=== PATIENT | female | born 1955 | race Caucasian/White ===

== ENCOUNTER 2018-06-10 00:08 | Outpatient (CLI) | payer MEDICARE, SELFPAY ==
--- NOTE | 2018-06-10 11:15 | DI.MAMMO_ITS ---
SYMPTOMS/DIAGNOSIS: SCREENING, [facility], [facility], Z00.00 MAMMOGRAM: Mammograms were interpreted according to the usual protocol including computer analysis with CAD system, tomosynthesis and C view imaging. The breasts are heterogeneously dense. No dominant mass or clumped microcalcification identified in either breast. Current examination is compared with previous examinations including September 2016 and there has been no gross interval change in appearance in comparison with the previous studies. CONCLUSION: No specific evidence of malignancy at this time. Routine screening examinations are suggested at yearly intervals due to the family history of breast carcinoma. Category 1, breast density category C. SA ASSESSMENT OF FINDINGS: Negative. Category 1. Patient will receive a letter notifying them of these results. Bi-RADS category C. The breasts are heterogeneously dense, which may obscure small masses.
== END 2018-06-10 00:28 ==
PROVIDERS: PCP Family Medicine; Visit Provider Family Medicine
DX: Z12.31 Encounter for screening mammogram for malignant neoplasm of breast (principal); Z80.3 Family history of malignant neoplasm of breast
CPT/HCPCS: 77063; 77067

== ENCOUNTER 2018-12-21 10:40 | Outpatient (REF) | payer MEDICARE, SELFPAY ==
[2018-12-21 13:58] LABS: ALT 18 U/L (12-78); AST 12 U/L (15-37); Alkaline Phosphatase 101 U/L (46-116); Anion Gap 7.6 mmol/L (3-11); BUN 19 mg/dL (7-18); Bilirubin Negative (Negative); Bilirubin, Direct 0.09 mg/dL (0.00-0.20); Bilirubin, Total 0.4 mg/dL (0.2-1.0); Blood Negative (Negative); CO2 28.4 mmol/L (21.0-32.0); CREATININE 0.95 mg/dL (0.55-1.02); Calcium 9.2 mg/dL (8.5-10.1); Chloride 104 mmol/L (98-107); Clarity Clear (Clear); Estimated GFR 59.04 (mL/min/1.73m2); Glucose 93 mg/dL (70-100); Glucose Negative (Negative); Ketones Negative (Negative); Leukocyte Esterase Trace (Negative); Nitrite Negative (Negative); Potassium 4.5 mmol/L (3.5-5.1); Sodium 140 mmol/L (136-145); Specific Gravity <= 1.005 (1.005-1.025); Total Protein 7.1 g/dL (6.4-8.2); Urobilinogen 0.2 EU/dL (Up TO 0.2); pH 5.5 (5-8)
[2018-12-21 13:59] LABS: HCT 41.8 % (36.0-46.0); HGB 13.3 g/dL (12.0-15.5); Mean Corp. HGB Concentration 31.8 g/dL (32.0-36.0); Mean Corpuscular Hemoglobin 29.2 pg (27.0-33.0); Mean Corpuscular Volume 91.7 fL (80-95); Mean Platelet Volume 10.8 fL (8.0-11.0); Platelet Count 265 x1000/uL (130-400); RBC 4.56 m/cumm (4.00-5.20); RBC Distribution Width 12.7 % (11.7-14.6); White Blood Cell Count 5.79 k/cumm (4.4-10.8)
[2018-12-21 14:13] LABS: Bacteria Rare HPF (Negative); Casts Negative LPF (Negative); Crystals Negative HPF (Negative); Epithelial Cells Rare HPF (Negative); Mucus Negative (Negative); Other Cells Rare Transitional (Negative); RBC Negative (0-2); WBC 0-2 HPF (0-5)
[2018-12-21 14:14] LABS: C & S Indicated? No
[2018-12-21 14:21] LABS: COMMENT (LAB VIEW ONLY) 26.67 mg/dL; Microalb ug/mg Crea 52.1 ug/mg Cr
== END 2018-12-21 11:00 ==
LOC: NCHCN 10:40
PROVIDERS: PCP Family Medicine; Visit Provider Family Medicine
DX: R79.89 Other specified abnormal findings of blood chemistry (principal); I10 Essential (primary) hypertension; N39.0 Urinary tract infection, site not specified
CPT/HCPCS: 80053; 80076; 85027; 81003; 81015; 82043; 82570

== ENCOUNTER 2018-12-25 01:08 | Outpatient (CLI) | payer MEDICARE, OTHER, SELFPAY ==
--- NOTE | 2018-12-25 13:45 | DI.CT_ITS ---
SYMPTOMS/DIAGNOSIS: SOLITARY PULMONARY NODULE, R91.1 CT SCAN OF THE CHEST: Noncontrast CT scan of the chest was performed. Comparison examination is 11/10/16. Lack of contrast does limit the examination. There is again seen a hypodense nodule in the left lobe of the thyroid gland, which appears unchanged in size. There is atherosclerosis of the thoracic aorta, but no significant aneurysmal dilatation is seen. The heart size is within normal limits. No significant pericardial effusion is present. Coronary artery calcifications are present. No significant thoracic adenopathy is appreciated. No pleural effusion or pneumothorax is identified. There is a noncalcified pulmonary nodule in the left lower lobe (series 6 image 399). The nodule measures 0.6 cm and is unchanged compared to the prior examination. There are scattered areas of pleural and parenchymal scarring. No new pulmonary nodules are appreciated. No focal consolidating infiltrates are seen. The tracheobronchial tree is unremarkable. Upper abdominal images again show findings of prior granulomatous disease in the spleen. There is a 1.3 cm stone in the gallbladder. Right renal cysts are present. No acute fractures are seen. Degenerative changes are seen in the spine. IMPRESSION: Stable 0.6 cm left lower lobe pulmonary nodule. The nodule has been stable since 11/10/2016.
== END 2018-12-25 01:28 ==
PROVIDERS: PCP Family Medicine; Visit Provider Family Medicine
DX: R91.1 Solitary pulmonary nodule (principal); K80.20 Calculus of gallbladder without cholecystitis without obstruction
CPT/HCPCS: 71250

== ENCOUNTER 2021-03-12 15:52 | Outpatient (REF) | payer MEDICARE, OTHER, SELFPAY ==
[2021-03-12 20:27] LABS: ESR 2 mm/hr (0-30)
[2021-03-12 20:28] LABS: HCT 42.1 % (36.0-46.0); HGB 13.2 g/dL (11.2-15.7); MCH 29.1 pg (27.0-33.0); MCHC 31.4 % (32.0-36.0); MCV 92.7 fL (80-95); MPV 10.8 fL (8.0-11.0); Platelet Count 270 10^3/uL (130-400); RBC 4.54 10^6/uL (3.93-5.22); RDW 12.5 % (11.7-14.6); RDW-SD 42.9 fL; WBC 6.45 10^3/uL (4.4-10.8)
[2021-03-12 20:33] LABS: ALT 66 U/L (14-59); AST 34 U/L (15-37); Albumin 3.8 g/dL (3.4-5.0); Alkaline Phosphatase 118 U/L (46-116); Anion Gap 6.4 mmol/L (3-11); BUN 23 mg/dL (7-18); Bilirubin, Total 0.5 mg/dL (0.2-1.0); CO2 30.6 mmol/L (21.0-32.0); CREATININE 0.9 mg/dL (0.55-1.02); Calcium 9.1 mg/dL (8.5-10.1); Calculated LDL 101 mg/dL (<100); Chloride 105 mmol/L (98-107); Cholesterol 208 mg/dL (<200); Glucose 69 mg/dL (74-106); HDL Cholesterol 73 mg/dL (40-60); Potassium 4.4 mmol/L (3.5-5.1); Sodium 142 mmol/L (136-145); Total Protein 6.8 g/dL (6.4-8.2); Triglyceride 174 mg/dL (<150)
[2021-03-12 21:08] LABS: Bilirubin Negative (Negative); Blood Trace-intact (Negative); Clarity Clear (Clear); Glucose Negative (Negative); Ketones Negative (Negative); Leukocyte Esterase Negative (Negative); Nitrite Negative (Negative); Urobilinogen 0.2 EU/dL (Up TO 0.2); pH 5.5 (5-8)
[2021-03-12 21:13] LABS: COMMENT (LAB VIEW ONLY) 108.55 mg/dL; Microalb ug/mg Crea 59.2 ug/mg Cr
[2021-03-12 21:19] LABS: Bacteria Rare HPF (Negative); C & S Indicated? C&S Done As Ordered; Casts Negative LPF (Negative); Crystals Negative HPF (Negative); Epithelial Cells Rare HPF (Negative); Mucus Negative (Negative); RBC 0-2 HPF (0-2); WBC Negative HPF (0-5)
[2021-03-12 21:23] LABS: C-Reactive Protein < 0.05 mg/dL (0.0-0.3)
== END 2021-03-12 15:53 | disposition home or self-care (01) ==
LOC: NCHCN 15:52
PROVIDERS: PCP Family Medicine; Visit Provider Family Medicine
DX: I10 Essential (primary) hypertension (principal); E28.319 Asymptomatic premature menopause; N39.0 Urinary tract infection, site not specified; M32.9 Systemic lupus erythematosus, unspecified
CPT/HCPCS: 80053; 80061; 85027; 85652; 87077; 81003; 81015; 82043; 82570; 86140; 87086; 87186

== ENCOUNTER 2021-06-07 02:31 | Outpatient (CLI) | payer MEDICARE, OTHER, SELFPAY ==
--- NOTE | 2021-06-07 | DI.DEXA_ITS ---
Exam(s) XR DEXA BONE DENSITY W/WO OBDULIO EXAM: XR DEXA BONE DENSITY W/WO OBDULIO CLINICAL HISTORY: EARLY MENOPAUSE E28.319 TECHNIQUE: NovaSom C densitometer COMPARISON: 2002 through 2014 FINDINGS: Lateral view of the thoracic and lumbar spine shows no evidence of compression fractures. Bone mineral density measurements of the lumbar spine correspond to a total T-score of -1.8, in the osteopenic range. This represents a 4.7 percent decrease when compared with 2014 and a 5.4 percent d ecrease compared with 2002. Bone mineral density measurements of the left hip correspond to a total T-score of -2.1. The femora l neck T-score is -3.0, in the osteoporotic range. This represents an 8.9 percent decrease compared to 2014 and a 19.0 percent decrease compared with 2002.. The left forearm bone mineral density measurements correspond to a T-score of the distal 3rd of -2.9 , in the osteoporotic range. 5.5 percent decrease compared with 2014 and 10.7 percent decrease when compared with 2011.. IMPRESSION: Osteoporosis of the left forearm and left hip. Osteopenia of the lumbar spine.
--- NOTE | 2021-06-07 13:50 | DI.MAMMO_ITS ---
Exam(s) MAMMO SCREENING EXAM: MAMMO SCREENING CLINICAL HISTORY: SCREENING FOR BREAST [id number] TECHNIQUE: Mammograms were interpreted according to the usual protocol including computer analysis w Pulsar CAD system, tomosynthesis and C-view imaging. COMPARISON: 2011 through 2017 FINDINGS: The breasts are composed of heterogeneously dense fibroglandular densities, Breast Density category C . No suspicious masses or suspicious microcalcifications are seen. No skin thickening or abnormal axillary lymph nodes are seen. There has been no significant change from prior exams. IMPRESSION: BI-RADS Category 1, Negative mammogram. Yearly screening mammography is recommended. Breast Density Category C, heterogeneously Dense. The mammogram demonstrates the patient's breast tissue is dense. Dense breast tissue is very common a nd is not abnormal but dense breast tissue can make it harder to find cancer on a mammogram. Also, de nse breast tissue may increase breast cancer risk. This information about the result of the mammogram report was provided to the patient to raise their awareness. Use this report when you speak with the patient about their risks for breast cancer, which includes their family history. At that time, you may recommend additional screening tests (Ultrasound or MRI) as they might be useful based on their r isk. A negative radiographic report should not delay biopsy if a dominant or clinically suspicious mass is present. Up to ten percent of cancers are not identified on mammography. A negative report may reinforce clinical impression. Adenosis and dense breasts may obscure an underlying neoplasm. False positive reports average 6 to 10%.
== END 2021-06-07 02:51 ==
PROVIDERS: PCP Family Medicine; Visit Provider Family Medicine
DX: Z12.31 Encounter for screening mammogram for malignant neoplasm of breast (principal); M81.0 Age-related osteoporosis without current pathological fracture; M85.88 Other specified disorders of bone density and structure, other site; E28.319 Asymptomatic premature menopause
CPT/HCPCS: 77063; 77067; 77080

== ENCOUNTER 2021-09-21 21:39 | Outpatient (REF) | payer MEDICARE, OTHER, SELFPAY ==
[2021-09-21 17:08] LABS: ALT 27 U/L (14-59); AST 23 U/L (15-37); Albumin 3.9 g/dL (3.4-5.0); Alkaline Phosphatase 101 U/L (46-116); Anion Gap 8.4 mmol/L (3-11); BUN 21 mg/dL (7-18); Bilirubin, Total 0.4 mg/dL (0.2-1.0); CO2 26.6 mmol/L (21.0-32.0); Calcium 9.3 mg/dL (8.5-10.1); Chloride 103 mmol/L (98-107); Estimated GFR 55.14 (mL/min/1.73m2); Glucose 87 mg/dL (74-106); PHOSPHORUS 4.7 mg/dL (2.6-4.7); Potassium 4.4 mmol/L (3.5-5.1); Sodium 138 mmol/L (136-145); Total Protein 6.9 g/dL (6.4-8.2)
[2021-09-24 06:57] LABS: Vitamin D 25 Total 37.2 ng/mL (30-100)
[2021-09-24 09:15] LABS: TSH (W/Ref FT4) 1.92 uIU/mL (0.36-3.74)
[2021-09-24 12:57] LABS: Parathyroid Hormone,Intact 43 pg/mL (19-88)
== END 2021-09-21 21:40 | disposition home or self-care (01) ==
LOC: NCHCN 21:39
PROVIDERS: PCP Family Medicine; Visit Provider Family Medicine
DX: I10 Essential (primary) hypertension (principal); M85.88 Other specified disorders of bone density and structure, other site; R79.89 Other specified abnormal findings of blood chemistry; M32.14 Glomerular disease in systemic lupus erythematosus
CPT/HCPCS: 80053; 82306; 83970; 84100; 84443

== ENCOUNTER 2022-05-03 13:24 | Outpatient (RCR) | payer MEDICARE, OTHER, SELFPAY ==
--- NOTE | 2022-05-03 13:15 | HOLTER_ITS ---
APPROVED REPORT Conclusion This a 48-hour Holter monitor ordered for palpitations Rhythm throughout was sinus with an average heart rate of 82, minimum was 66, maximum 156 There are very rare isolated atrial and ventricular ectopic beats There was no atrial fibrillation, no SVT, no high-grade AV block, no pauses greater than 3 seconds Patient symptoms were reported which did not correspond to any dysrhythmia
== END 2022-05-15 23:59 | disposition home or self-care (01) ==
LOC: CARDOPNVT 13:24
PROVIDERS: PCP Family Medicine; Visit Provider Family Medicine
DX: R00.0 Tachycardia, unspecified (principal); R00.2 Palpitations
CPT/HCPCS: 93227; 93225; 93226

== ENCOUNTER → 2022-06-07 12:00 | Outpatient (BNVA) | payer MEDICARE, OTHER, SELFPAY | PROVIDERS: PCP Family Medicine; Referring Provider Family Medicine; Visit Provider Surgery | DX: Z12.11 Encounter for screening for malignant neoplasm of colon (principal) ==

== ENCOUNTER 2022-07-11 01:25 | Outpatient (CLI) | payer MEDICARE, OTHER, SELFPAY ==
--- NOTE | 2022-07-11 | DI.US_ITS ---
APPROVED REPORT EXAM: Comprehensive 2D, Doppler, and color-flow Echocardiogram Patient Location: Out-Patient Rn Lvn: Felicitas Catherine RDCS (AE) Indications: Palpitations, Heart murmur Other Information Study Quality: Adequate Conclusion Normal left ventricular wall thickness and chamber size. Estimated ejection fraction is 60 to 65%. Wall motion is normal Normal right ventricular size and systolic function Both atria are normal in size Aortic valve is trileaflet with trace regurgitation Normal mitral valve with mild regurgitation Normal tricuspid valve, mild regurgitation. Estimated right ventricular systolic pressure is 30 mmHg Wall motion Left Ventricle The left ventricle is normal size. The left ventricular systolic function is normal. The left ventric ular ejection fraction is within the normal range. There is normal left ventricular wall thickness. T here is normal LV segmental wall motion. There is no ventricular septal defect visualized. LVEF is 60 -65%. Right Ventricle The right ventricle is normal size. The right ventricular systolic function is normal. The RVSP is 30 .0mmHg. Atria The left atrium size is normal. The right atrium size is normal. The interatrial septum is intact wit h no evidence for an atrial septal defect. Aortic Valve The aortic valve is normal in structure. There is no aortic valvular stenosis. Trace aortic regurgita tion. Mitral Valve The mitral valve is normal in structure. No evidence of mitral valve stenosis. Mild mitral regurgitat ion. Tricuspid Valve The tricuspid valve is normal in structure. There is no tricuspid valve stenosis. Mild tricuspid reg urgitation. Pulmonic Valve The pulmonary valve is normal in structure. There is no pulmonic valvular stenosis. There is no pulmo arianna valvular regurgitation. Great Vessels The aortic root is normal in size. The ascending aorta is normal in size. Aortic arch is normal in ca liber. IVC is normal in size and collapses >50% with inspiration. Pericardium There is no pericardial effusion. 2D Dimensions IVSD d PLAX 0.96 cm F: 0.6-1.0 LV Vol A2C d MOD 87.0 mL LVPW d PLAX 0.96 cm F: 0.6 - 1.0 LV Vol A4C d MOD 71.5 mL LVID d PLAX 4.06 cm F: 3.8 - 5.2 LA vol/ BSA A2C s A-L 35.9 mL/m2 LVDs 2.80 cm F: 2.2 - 3.5 LA vol/ BSA A4C s A-L 25.0 mL/m2 Ao Root d 2.49 cm F: 2.7 - 3.3 LA Vol/ BSA Biplane s A-L 30.2 mL/m2 RA Area A4C 9.93 cm2 LA Area A4C s MOD 16.67 cm2 RA Vol/ BSA A4C s A-L 11.2 mL/m2 LA Area A2C s MOD 19.82 cm2 Ao Asc Diam d 3.14 cm F: 2.3 - 3.1 LV EF A4C MOD 58.9 % LV EF Teichholz 57.8 % LV EF A2C MOD 58.5 % LVEF (Bone's) 57.76 % F: 54 - 74 LV EF Biplane MOD 57.8 % LV Volume 62.39 mL F: 46 - 106 SV 46.19 mL LV Volume Index 34.85 mL/m2 F: 29 - 61 SV Index 25.88 mL/m2 LV Vol Biplane MOD 80.0 mL FS 30.05 % M-Mode TAPSE 1.64 cm (M/F) >1.7 LV Diastology MV E' medial 0.127 (>0.07 m/s) E/A Ratio 0.7 LV E/e MED 5.45 (<14) MV E Vmax 0.70 (0.4-1.3 m/s) MV E' lateral 0.067 (>0.1 m/s) MV A Vmax 1.00 (0.4-1.3 m/s) LV E/e LAT 10.35 (<14) MV E/A Ratio 0.67 MV E/E' medial 5.48 MV E/E' lateral 10.35 Aortic Valve LVOT Area 2.89 cm2 AoV Area Vmax 2.66 cm2 LVOT Vmax 1.64 m/s AoV Area/ BSA (Vmax) 1.49 cm2/m2 LVOT Mean Amol. 1.05 m/s MAURICE Mean Amol. 2.47 cm2 LVOT Peak Grad 10.8 mmHg MAURICE Mean Amol. Index 1.38 cm2/m2 LVOT Mean Grad 5.2 mmHg AR DT 1890 msec LVOT VTI 0.326 m AR PHT 548 msec LVOT Diam s 1.90 cm AoV Vmax 1.78 m/s Velocity Ratio 0.92 AoV Mean Amol. 1.23 m/s AoV Peak Grad 12.7 mmHg LVOT SV 94.27 mL AoV Mean Grad 6.9 mmHg AoV VTI 0.329 m AoV Area VTI 2.86 cm2 AoV Area/ BSA (VTI) 1.60 cm/m2 Mitral Valve MV DT 175 (160-240 msec) MV PHT 51 msec MV Area PHT 4.32 cm2 MV VTI 0.269 m MV Area VTI 3.51 (4.0-6.0 cm2) Pulmonary Valve PV Vmax 1.11 (0.5-1.5 m/s) RVOT Peak Gr. 3.28 mmHg PV Peak Grad 4.9 mmHg RVOT Mean Gr. 1.55 mmHg PV Mean Grad 2.5 mmHg RVOT VTI 0.180 m PV VTI 0.209 m RVOT Vmax 0.91 m/s Tricuspid Valve TR Peak Grad 26.9 mmHg TR Vmax 2.60 m/s RA Pressure 3.00 mmHg RVSP (TR) 30.0 mmHg
== END 2022-07-11 01:45 ==
LOC: DI 01:26
PROVIDERS: PCP Family Medicine; Visit Provider Family Medicine
DX: R00.2 Palpitations (principal); R01.1 Cardiac murmur, unspecified
CPT/HCPCS: 93306

== ENCOUNTER → 2022-07-15 09:37 | Outpatient (BNVA) | payer MEDICARE, OTHER, SELFPAY | PROVIDERS: PCP Family Medicine; Referring Provider Family Medicine; Visit Provider Surgery | DX: Z12.11 Encounter for screening for malignant neoplasm of colon (principal); Z80.0 Family history of malignant neoplasm of digestive organs; K57.30 Diverticulosis of large intestine without perforation or abscess without bleeding; K21.9 Gastro-esophageal reflux disease without esophagitis; I10 Essential (primary) hypertension | CPT/HCPCS: 99243 ==

== ENCOUNTER 2022-07-16 13:45 | Outpatient (CLI) | payer MEDICARE, OTHER, SELFPAY ==
[2022-07-16 13:49] LABS: Abs Immature Grans 0.02 10^3/uL (0.0-0.06); Absolute Basophil Count 0.03 10^3/uL (0.0-0.2); Absolute Eosinophil Count 0.11 10^3/uL (0.0-0.7); Absolute Lymphocyte Count 1.78 10^3/uL (1.2-3.4); Absolute Monocyte Count 0.62 10^3/uL (0.1-0.8); Absolute Neutrophil Count 3.24 10^3/uL (1.2-6.7); Basophils % 0.5; Eosinophils % 1.9; HCT 39.2 % (36.0-46.0); HGB 12.6 g/dL (11.2-15.7); Immature Grans % 0.3; Lymphocytes % 30.7; MCH 28.9 pg (27.0-33.0); MCHC 32.1 % (32.0-36.0); MCV 90 fL (80-95); MPV 9.7 fL (8.0-11.0); Monocytes % 10.7; Neutrophils % 55.9; Platelet Count 266 10^3/uL (130-400); RBC 4.36 10^6/uL (3.93-5.22); RDW 12.8 % (11.7-14.6); RDW-SD 42.5 fL
[2022-07-16 14:29] LABS: ALT 18 U/L (14-59); AST 21 U/L (15-37); Albumin 3.7 g/dL (3.4-5.0); Alkaline Phosphatase 116 U/L (46-116); BUN 24 mg/dL (7-18); Bilirubin, Total 0.2 mg/dL (0.2-1.0); CREATININE 0.9 mg/dL (0.55-1.02); Calcium 8.8 mg/dL (8.5-10.1); Chloride 106 mmol/L (98-107); GGT 8 U/L (5-55); Glucose 117 mg/dL (74-106); Potassium 3.9 mmol/L (3.5-5.1); Sodium 141 mmol/L (136-145)
== END 2022-07-16 13:46 | disposition home or self-care (01) ==
LOC: LBO 13:45
PROVIDERS: PCP Family Medicine; Visit Provider Surgery
DX: I10 Essential (primary) hypertension (principal); K21.9 Gastro-esophageal reflux disease without esophagitis; K57.30 Diverticulosis of large intestine without perforation or abscess without bleeding; E78.00 Pure hypercholesterolemia, unspecified; R94.5 Abnormal results of liver function studies
CPT/HCPCS: 36415; 80053; 82977; 85025; 85610

== ENCOUNTER 2022-07-18 07:01 | Day surgery (SDC) | payer MEDICARE, OTHER, SELFPAY ==
--- NOTE | 2022-07-17 21:17 | W.PM.DSUDISC ---
Date of service: 07/18/22 Time of Service: 09:03 Discharge Plan Disposition Patient Disposition: Home Condition: Good Discharge Details Reason For Visit: Screening colonoscopy Attending Provider: Galdino Hendricks Primary Care Provider: Fernanda Arreola Home Meds and New Rx's Prescriptions: Continued estradiol [Estrace] 0.01 % (0.1 mg/gram) cream 1 g vaginal QWEEK latanoprost 0.005 % drops 1 drp ophthalmic (eye) DAILY nitrofurantoin macrocrystal 50 mg capsule 50 mg PO QHS Rx Instructions: must administer with a meal/food diphenhydramine-acetaminophen [Tylenol PM Extra Strength] 25-500 mg tablet 1 tab PO QHS PRN Excedrin Extra Strength 250-250-65 mg tablet 1 tab PO ONCE lisinopril 40 MG tablet 40 mg PO HS hydroxychloroquine 200 MG tablet 0.5 tab PO BID Discontinued polyethylene glycol 3350 17 gram/dose powder 238 g PO ONCE Qty: 238 0RF Rx Instructions: take per colonoscopy instructions bisacodyl [Dulcolax (bisacodyl)] 5 mg tablet,delayed release (DR/EC) 5 mg PO ONCE Qty: 4 0RF Rx Instructions: take per colonoscopy instructions Discharge Instructions Instructions: Rectocele (GEN), Diverticulosis (DC), Diverticulosis Diet (GEN), Colorectal Polyps (GEN) Additional Instructions: Rosalba, we were able to complete your colonoscopy today without any difficulty. The quality of your prep was excellent. I think the feeling that you have around your rectum is probably a rectocele. I provided some information here about rectoceles. They are not dangerous, and treatment is based on the severity of your symptoms. You also have diverticulosis. You should try to maintain a balanced diet rich in fibers, and stay well-hydrated. Avoiding constipation is the ugalde. I removed 3 pieces of tissue that seemed consistent with polyps. We will take about a week and a half or so to get the results of the pathology report. I will contact you at that time. 1. If tolerated, consume a soft, low fiber diet for 1-2 days. 2[address] Do not drive, drink alcohol, operate machinery, make critical decisions, or do activities that require coordination or balance for 24 hours. 3. Because air was put into your colon during the procedure, expelling air from your rectum (passing gas or farting) is normal. 4. You may not have a bowel movement for 1-3 days because of the colonoscopy prep. This is normal. 5. Go directly to the emergency room if you notice any of the following: Develop chills (warm to touch), or if you have a thermometer and your temperature is above 101 Difficulty breathing or difficultly swallowing Persistent vomiting Severe abdominal pain, other than gas cramps Severe chest pain Black, tarry stools Any bleeding ? exceeding one tablespoon 6. Call your physician if the site where your intravenous was started becomes red, swollen, painful, and warm to touch. 7. Your physician has reviewed your pre-procedure medications. Please continue to take those medications as previously ordered. You will be given specific information/education regarding any changes to your medications before leaving. Activity:: Activity as Tolerated Diet:: As Tolerated Discharge Orders Discharge Orders: Discharge Order (Routine); Ordered 07/17/22 Ordered By: Galdino Hendricks DS: Diagnosis Discharge Diagnosis (1) Screening for colon cancer: Status: Acute Asessment and Plan: Follow-up on polypectomy pathology
--- NOTE | 2022-07-17 21:18 | W.COLOREPORT ---
Date of service: 07/18/22 Time of Service: 09:05 Colonoscopy Report Date of procedure: 07/18/22 Pre-op diagnosis general: Screening colonoscopy Post-op diagnosis procedure note: other (Rectocele, diverticulosis, colorectal polyps) Procedure: Colonoscopy Surgeon: Galdino Hendricks Anesthesia Type: General:No Airway Estimated blood loss (mL): 10 Pathology: other (Colon polyp at 35 cm, rectal polyps x2) Complications: None Disposition: same day Indications: Augustina is a 67-year-old woman with a first-degree relative with colon cancer. She is undergoing screening colonoscopy Prep: Miralax/Dulcolax Procedure Start Time: 08:20 Procedure End Time: 08:47 Retraction Time: 17 Findings: Colon polyp at 35 cm, rectal polyps x2, diverticulosis, rectocele Procedure Description: After the induction of monitored anesthetic care, and with the patient in left lateral decubitus position, I began by performing an external anorectal exam.? Perineum and skin were normal, as was the anal verge.? There was no not evidence of external hemorrhoids.? Next, I performed a digital rectal exam.? I did appreciate any abnormal findings.? Next, I advanced a colonoscope into the rectal vault.? I performed retroflexion.? There appeared to be a rectocele. I did not see signs of significant internal hemorrhoids.? Using insufflation, I then advanced the colonoscope beyond the rectal folds and into the sigmoid colon before advancing towards the cecum.? There was moderate sigmoid diverticulosis the quality of the prep was adequate.? The scope was noted to be in the cecum by identification of the ileocecal valve and appendiceal orifice.? I then began withdrawing the colonoscope using repeated irrigation as necessary for full evaluation of the colonic mucosa. Around 35 cm from the anal verge I identified a 0.25 cm polyp. ?It appeared sessile in character. ?I was able to remove this with a cold forcep polypectomy. ?I examined the site, and there was minimal bleeding. ?Once this was completed, I continued to withdraw the scope and examine the remainder of the colonic mucosa. Once the scope was withdrawn to the level of the rectum, great care was taken to examine portions of the rectal folds.? I Found 2 Rectal Polyps. Both Were Less Than Half a Centimeter. Both Were Removed with Cold Forcep Polypectomy. Finally, the scope was withdrawn and the patient was brought to the same-day surgery recovery unit as the anesthetic wore off. ?The findings and instructions were shared with the patient prior to discharge.
[2022-07-18 07:05] VITALS: BP 153/82; PULSE 93; RESP 18; TEMP 36.4; O2SAT 99
[2022-07-18] MEDS: Lactated Ringers 1,000 ML 80 ML IV (07:52)
--- NOTE | 2022-07-18 08:01 | ANES.PREOP_ITS ---
General Info Date of Service Date Performed: 07/18/22 Height: 5 ft 6 in Weight: 69.2 kg Body Mass Index (BMI): 24.6 Surgical Procedure: Operation Date: 07/18/22 08:20 Proposed Procedure Side Surgeon silvestre Hendricks MD Meds Allergies and Home Medications Allergies Allergy/AdvReac Type Severity Reaction Status Date / Time Sulfa (Sulfonamide AdvReac Intermediate Dizziness/L Unverified 07/18/22 07:26 Antibiotics) ightheade Home Medication Medication Instructions Recorded hydroxychloroquine 200 mg tablet 0.5 tab PO BID 11/10/16 lisinopril 40 mg tablet 40 mg PO HS 11/10/16 [id number] 250 1 tab PO ONCE 04/22/22 mg-250 mg-65 mg tablet (Excedrin Extra Strength) diphenhydramine 25 1 tab PO QHS PRN 04/22/22 mg-acetaminophen 500 mg tablet (Tylenol PM Extra Strength) estradiol 0.01% (0.1 mg/gram) 1 g vaginal QWEEK 04/22/22 vaginal cream (Estrace) latanoprost 0.005 % eye drops 1 drp ophthalmic (eye) DAILY 04/22/22 nitrofurantoin macrocrystal 50 mg 50 mg PO QHS 04/22/22 capsule Current Visit Medications: Current Medications Generic Name Dose Route Start Last Admin Trade Name Freq PRN Reason Stop Dose Admin Hyoscyamine Sulfate 0.125 mg 07/17/22 21:19 Hyoscyamine 0.125 Mg Sl/Oral/Chew SL DIRECTED PRN Ringer's Solution 1,000 mls @ 80 mls/hr 07/18/22 06:00 07/18/22 07:52 IV 08/16/22 23:59 80 mls/hr INFUSION LUIS ALFREDO Administration IV Miscellaneous Supplies 1 each 07/18/22 06:00 Iv Access IV 08/16/22 23:59 DIRECTED LUIS ALFREDO Ondansetron HCl 4 mg 07/17/22 21:19 Ondansetron 4 Mg/2 Ml Vial IVP Q4H PRN PRN Nausea / Vomiting Sodium Chloride 0 ml 07/18/22 06:00 Normal Saline Flush 10 Ml Syr IV 08/16/22 23:59 PRN PRN Sodium Chloride 0 ml 07/18/22 06:00 Normal Saline 10 Ml Vial IJ 08/16/22 23:59 DIRECTED PRN Sterile Water 0 ml 07/18/22 06:00 Water,Injection,Sterile 10 Ml Vial IJ 08/16/22 23:59 DIRECTED PRN PFSH Active Problems Active Problems: Problem Status Onset Code Screening for colon cancer Z12.11 Osteoporosis M81.0 Elevated LFTs R79.89 Solitary pulmonary nodule R91.1 Right hip pain M25.551 SLE (systemic lupus erythematosus) M32.9 Hypertension I10 Family history of colon cancer Z80.0 RYLIE (obstructive sleep apnea) G47.33 Mitral valve regurgitation I34.0 GERD (gastroesophageal reflux disease) K21.9 Diverticula of colon K57.30 Medical History Medical History H pylori ulcer History of recurrent UTIs Lupus nephritis Ureteral reflux Surgical History Surgical History (Updated 07/18/22 @ 07:26 by Carolyn Kong) History of colonoscopy Tobacco Smoking/Tobacco Use Status: Never Alcohol Alcohol Intake: never Substance Use Substance use: Never Substance use type: does not use Vital Signs and Lab Results Vital Signs Most Recent Vital Signs in EMR: Most Recent Vital Signs Temp Pulse Resp BP Pulse Ox 36.4 C L 93 H 18 153/82 H 99 07/18/22 07:05 07/18/22 07:05 07/18/22 07:05 07/18/22 07:05 07/18/22 07:05 Lab Results Blood Type / Crossmatch: No Data to Display Complete Blood Count: White Blood Count 5.80 10^3/uL (4.4-10.8) 07/16/22 13:46 Red Blood Count 4.36 10^6/uL (3.93-5.22) 07/16/22 13:46 Hemoglobin 12.6 g/dL (11.2-15.7) 07/16/22 13:46 Hematocrit 39.2 % (36.0-46.0) 07/16/22 13:46 Platelet Count 266 10^3/uL (130-400) 07/16/22 13:46 Complete Metabolic Panel: Sodium 141 mmol/L (136-145) 07/16/22 13:46 Potassium 3.9 mmol/L (3.5-5.1) 07/16/22 13:46 Chloride 106 mmol/L (98-107) 07/16/22 13:46 Carbon Dioxide 25.0 mmol/L (21.0-32.0) 07/16/22 13:46 BUN 24 mg/dL (7-18) H 07/16/22 13:46 Creatinine 0.9 mg/dL (0.55-1.02) 07/16/22 13:46 Est GFR (CKD-EPI 2020) 69.20 (mL/min/1.73m2) 07/16/22 13:46 Calcium 8.8 mg/dL (8.5-10.1) 07/16/22 13:46 Albumin 3.7 g/dL (3.4-5.0) 07/16/22 13:46 Glucose 117 mg/dL (74-106) H 07/16/22 13:46 Liver Function Panel: Alanine Aminotransferase (ALT/SGPT) 18 U/L (14-59) 07/16/22 13: 46 Aspartate Amino Transf (AST/SGOT) 21 U/L (15-37) 07/16/22 13:46 Gamma Glutamyl Transpeptidase 8 U/L (5-55) 07/16/22 13:46 Coagulation Panel: INR International Normalized Ratio 1.0 (0.9-1.1) 07/16/22 13:4 6 Prothrombin Time 10.0 sec (9.3-11.0) 07/16/22 13:46 Cardiac Panel: No Data to Display Arterial Blood Gas: No Data to Display Venous Blood Gas: No Data to Display Pancreas Panel: No Data to Display Thyroid Panel: No Data to Display Infectious Disease: No Data to Display Blood Cultures: No Data to Display Toxicology Panel: No Data to Display Imaging and Studies Imaging and Studies Study information below may be from another EMR and interpreted by another provider. Please see original notes in EMR for more complete details. Echocardiogram Summary: Conclusion Normal left ventricular wall thickness and chamber size. Estimated ejection fraction is 60 to 65%. Wall motion is normal Normal right ventricular size and systolic function Both atria are normal in size Aortic valve is trileaflet with trace regurgitation Normal mitral valve with mild regurgitation Normal tricuspid valve, mild regurgitation. Estimated right ventricular systolic pressure is 30 mmHg Wall motion 07/08 Anesthesia Assessment and Plan Anesthesia History Personal History: No History of Anesthesia Complications Family History: No Family History of Anesthesia Complications Exercise Tolerance Exercise Tolerance: Metabolic Equivalents>4 Pertinent Negatives Pertinent Negatives: No Symptoms of GERD (Meal related. Spicy) Cardiac & Pulmonary Exam Cardiac Exam: Normal S1/S2 Heart Sounds Pulmonary Exam: Clear Bilateral Breath Sounds Implantable Cardiac Device Does patient have a Pacemaker or an ICD?: No Airway Exam Known Difficult Airway: No Mallampati Class: 2 Mouth Opening: Normal (> 3cm) Thyromental Distance: Greater than 3 cm Neck Range of Motion: Full ROM Neck Circumference: Normal Teeth Condition: Normal Dentition ASA Classification ASA Score: ASA 2 Emergency Case?: No NPO Status NPO Status: NPO Clears >2 hours, Solids >8 hours Anesthesia Plan Resuscitation Status: Full Code Anesthesia Technique: General Anesthesia Airway Planned: Natural Airway Monitors Used: Standard Monitors
[2022-07-18 08:07] VITALS: BMI 24.6
--- NOTE | 2022-07-18 08:43 | BOWEL_PTH ---
PATIENT: Rosalba Chappell LOC: [facility] U#:[id number] AGE/SX: 67/F ROOM: RE07/18/[address]: Galdino Hendricks MD : [id number] BED: DIS: 07/18/2022 SPEC #: [id number] RECD: 07/18/22 12:22 STATUS: KHANG RE #: [id number] JERONIMO: 07/18/22 08:[address]: Galdino Hendricks DEPT: Surgical Specimen RECD BY: Angelita Darby ENTERED: 07/18/22 12:23 SP TYPE: Bowel OTHR DR: Fernanda Arreola Tissues: 1 - BIOPSY BOWEL 2 - BIOPSY BOWEL Procedures: GROSS AND MICRO LEVEL 4 Comments: [id number]
[2022-07-18 08:56] VITALS: BP 116/73; PULSE 82; RESP 16; TEMP 36.3
--- NOTE | 2022-07-18 09:10 | W.ANESPOSTOP ---
Postoperative Evaluation Date, Time and Location Date Performed: 07/18/22 Time Performed: 09:10 Patient Location: Day Surgery Unit Vital Signs Most Recent Imported Vital Signs: Most Recent Vital Signs Temp Pulse Resp BP Pulse Ox 36.3 C L 82 16 116/73 99 07/18/22 08:56 07/18/22 08:56 07/18/22 08:56 07/18/22 08:56 07/18/22 07:05 Pain Score Most Recent Pain Score: Most Recent Pain Score Pain Level 0 07/18/22 08:56 Assessment Mental Status: Awake (Alert & Oriented to Patient Baseline) Airway and Respiratory Function: Patent airway with normal (patient baseline) respiratory exam Cardiovascular Function: Hemodynamically Stable Hydration Status: Adequately Hydrated Nausea & Vomiting: No Nausea or Vomiting Pain: Pt. Denies Any Pain Peripheral Nerve Block: Patient did not receive a nerve block
[2022-07-18 09:24] VITALS: BP 157/88; PULSE 74; RESP 16; TEMP 36.5; O2SAT 98
== END 2022-07-18 09:40 | disposition home or self-care (01) ==
PROVIDERS: PCP Family Medicine; Visit Provider Surgery
PROC: 0DJD8ZZ Inspection of Lower Intestinal Tract, Via Natural or Artificial Opening Endoscopic (ICD-10-PCS; CPT 45378; principal; 2022-07-18 08:15)
DX: Z12.11 Encounter for screening for malignant neoplasm of colon (principal); K63.5 Polyp of colon; K62.1 Rectal polyp; Z80.0 Family history of malignant neoplasm of digestive organs; K57.30 Diverticulosis of large intestine without perforation or abscess without bleeding
CPT/HCPCS: 45380; 88305

== ENCOUNTER → 2023-07-22 02:51 | Outpatient (CLI) | payer MEDICARE, OTHER, SELFPAY ==
--- NOTE | 2023-07-22 07:45 | DI.MAMMO_ITS ---
Exam(s) MAMMO SCREENING EXAM: MAMMO SCREENING CLINICAL HISTORY: SCREENING, Z12.39 TECHNIQUE: Mammograms were interpreted according to the usual protocol including computer analysis w [employer] CAD system, tomosynthesis and C-view imaging. COMPARISON: 2014 through 2020 FINDINGS: The breasts are composed of scattered fibroglandular densities, Breast Density category B. No suspicious masses or suspicious microcalcifications are seen. No skin thickening or abnormal axillary lymph nodes are seen. There has been no significant change from prior exams. IMPRESSION: BI-RADS Category 1, Negative mammogram Yearly screening mammography is recommended. Breast Density - Category B, scattered fibroglandular densities. A negative radiographic report should not delay biopsy if a dominant or clinically suspicious mass is present. Up to ten percent of cancers are not identified on mammography. A negative report may reinforce clinical impression. Adenosis and dense breasts may obscure an underlying neoplasm. False positive reports average 6 to 10%. Patient will receive a letter notifying them of these results.
== END ==
PROVIDERS: PCP Family Medicine; Visit Provider Family Medicine
DX: Z12.31 Encounter for screening mammogram for malignant neoplasm of breast (principal); R92.323 Mammographic fibroglandular density, bilateral breasts
CPT/HCPCS: 77063; 77067

== ENCOUNTER 2023-08-25 11:20 | Outpatient (REF) | payer MEDICARE, SELFPAY ==
[2023-08-25 16:06] LABS: HCT 39.6 % (36.0-46.0); HGB 12.8 g/dL (11.2-15.7); MCH 28.4 pg (27.0-33.0); MCHC 32.3 % (32.0-36.0); MCV 88 fL (80-95); MPV 10.6 fL (8.0-11.0); Platelet Count 304 10^3/uL (130-400); RDW 12.5 % (11.7-14.6); RDW-SD 40.6 fL; WBC 8.08 10^3/uL (4.4-10.8)
[2023-08-25 17:46] LABS: ALT 24 U/L (14-59); AST 26 U/L (15-37); Albumin 3.6 g/dL (3.4-5.0); Alkaline Phosphatase 101 U/L (46-116); Anion Gap 11.9 mmol/L (3-11); BUN 16 mg/dL (7-18); Bilirubin, Total 0.3 mg/dL (0.2-1.0); CO2 25.1 mmol/L (21.0-32.0); Calcium 9.4 mg/dL (8.5-10.1); Chloride 103 mmol/L (98-107); Estimated GFR 60.61 (mL/min/1.73m2); Glucose 103 mg/dL (74-106); Potassium 4.3 mmol/L (3.5-5.1); Sodium 140 mmol/L (136-145)
[2023-08-25 18:02] LABS: COMMENT (LAB VIEW ONLY) 39.38 mg/dL; Microalb ug/mg Crea 52.3 ug/mg Cr
== END 2023-08-25 11:21 | disposition home or self-care (01) ==
LOC: NCHCN 11:20
PROVIDERS: PCP Family Medicine; Visit Provider Family Medicine
DX: M32.14 Glomerular disease in systemic lupus erythematosus (principal)
CPT/HCPCS: 80053; 85027; 82043; 82570

== ENCOUNTER → 2023-10-23 00:02 | Outpatient (CLI) | payer MEDICARE, SELFPAY ==
--- NOTE | 2023-10-23 | DI.DEXA_ITS ---
Exam(s) XR DEXA BONE DENSITY W/WO OBDULIO EXAM: XR DEXA BONE DENSITY W/WO OBDULIO CLINICAL HISTORY: M81.0 Age related osteoporosis TECHNIQUE: COMPARISON: CR XR DEXA BONE DENSITY W/WO OBDULIO from 06/07/2021 FINDINGS: Lateral Spine Image: Unremarkable. No compression deformities identified. Left hip: Total T-Score: -2.2. This compares to -2.1 on the prior examination. Total Z-Score: -0.6 T- and Z-scores: Findings are consistent with osteopenia. There is osteoporosis in the femoral neck with a T-score of -2.8. Lumbar Spine: Total T-Score: -1.3. This compares to -1.9 on the prior examination. Total Z-Score: 0.8 T- and Z-scores: Findings are consistent with osteopenia. Left forearm: There is osteoporosis in the left forearm with a total T-score of -3.0 and a Z-score of -1.0. This compares to -2.1 on the prior examination. IMPRESSION: Osteoporosis in the left femoral neck and the left forearm.
== END ==
PROVIDERS: PCP Family Medicine; Visit Provider Family Medicine
DX: M81.0 Age-related osteoporosis without current pathological fracture (principal); Z13.820 Encounter for screening for osteoporosis
CPT/HCPCS: 77080

== ENCOUNTER → 2023-11-27 00:21 | Outpatient (CLI) | payer MEDICARE, SELFPAY ==
--- NOTE | 2023-11-27 | DI.NM_ITS ---
APPROVED REPORT Exam: Exercise Treadmill Patient Location: Out-Patient Room/Bed: Stress Nurse: Darcy Smith RN Ordering Provider:RANJAN RAMIREZ, Contact Number: [phone] BMI: 25.01 Baseline Rhythm: Sinus Rhythm Comment: Diffuse T wave inversion, baseline ST-T abnormalities, occasional PAC's Indications: ARMSTRONG Medical History Medical History: Pulmonary nodule, HTN, RYLIE, mitral valve regurgitation, GERD, hip pain Cardiac Medications: Lisinopril, hydroxychloroquine Allergies: Sulfa Cardiac Risk Factors: Family hx, HTN Previous Cardiac Procedures: None Pretest Chest Pain Characteristics: None Exercise History: Sedentary Physical Disabilities: None Lung Sounds: Clear to auscultation Heart Sounds: Regular Stress Test Details Test: Exercise stress testing was performed using a Guillermo protocol. Nuclear Acquisition: Rest Tc-99m/Stress Tc-99m 1 day Rest Isotope: Tc-99m Sestamibi. Dose: 10.0 Date: 11/27/2023 Injection Time: 0900 Stress Isotope: Tc-99m Sestamibi. Dose: 30.0 Date: 11/27/2023 Injection Time: 1017 HR Resting HR Supine: 86 bpm Max Heart Rate (APMHR): 150.172738 bpm Resting HR Standin bpm Target HR (85% APMHR): 127.152471 bpm Max HR Achieved: 140 bpm % of APMHR: 93.33 Recovery HR: 86 bpm HR response to stress: Accelerated HR response to stress BP Resting BP Supine: 160/84 mmHg Resting BP Standin/92 mmHg Max BP: 206/86 mmHg Recovery BP: 160/70 mmHg BP response to stress: Abnormal hypertensive response to stress. ECG Resting ECG: Sinus Rhythm, nonspecific ST-T abnormalities Ectopy: PAC's Comment: Diffuse T wave inversion Stress ECG: Sinus Tachycardia, nonspecific ST-T abnormalities ST Change: Downsloping ST depression Lead(s): inferior leads, V5, V6 Stage: [address] Deviation: 3 mm Arrhythmia: Occasional PAC's Comment: Diffuse T wave inversion Recovery ECG: Sinus Rhythm, nonspecific ST-T abnormalities Recovery ST Change: Downsloping ST depression Lead(s): inferior leads, V5, V6 Recovery ST Deviation: 2-3 mm Recovery Arrhythmia: Occasional PAC's Comment: Diffuse T wave inversion, ST depression back to baseline at end of test Clinical Reason for Termination: Target HR Achieved, Fatigue, ST changes, Dyspnea Stress Symptoms: Moderate SOB Exercise duration: 02 min59 sec Highest Stage Reached: Stage 1: 1.7 mph at 10% grade. Exercise capacity: 4.64 METs Angina Score: None Martin Treadmill Score: -13.0 Rate Pressure Product: 16220 Stress ECG Conclusion 1. Resting electrocardiogram showed left ventricular hypertrophy with repolarization abnormalities 2. Patient exercised on the Guillermo protocol and completed a workload of 4.64 METS 3. Accelerated heart rate response with exercise. The patient achieved 93% of predicted heart rate f or age. Normal blood pressure response to exercise 4. Electrocardiographically the test was suggestive but not diagnostic of myocardial ischemia given r esting EKG abnormalities 5. See MPI report Martin Treadmill Score is -13.0 which is High risk. Stress Test Summary STAGE Time (mins) Speed (mph) Grade (%) HR BP SpO2 SYMPTOMS METS Supine 86 160/84 97 Standing 89 164/92 1 3 1.7 10 140 190/90 92 Mod SOB, general fatigue 4.5 1 min recovery 125 192/80 Mod SOB, general fatigue 3 min recovery 104 206/86 6 min recovery 86 160/70 96 All symptoms resolved. Patient noted to have baseline ST depression and diffuse T wave inversion at start of test. Supine EK G viewed by Dr. Kirk and OK to proceed with test. ST depression back to baseline at end of recover an d all symptoms resolved. Spoke with Dr. Kirk and patient ok to leave post imaging. MPI Conclusion Myocardial perfusion is normal. There is no ischemia or evidence of prior infarction Ejection fraction is 83%. Wall motion is normal Radiologist Interpretation Radiologist agrees with Cleaning Team Member's Interpretation. Radiologist Interpretation by: Gege Warren MD Interpretation Date/Time: 12/01/2023 15:22:51
== END ==
PROVIDERS: PCP Family Medicine; Visit Provider Family Medicine
DX: R06.00 Dyspnea, unspecified (principal)
CPT/HCPCS: 78452; 93016; 93017

== ENCOUNTER 2024-01-13 11:00 | Outpatient (CLI) | payer MEDICARE, SELFPAY ==
--- NOTE | 2024-01-13 11:15 | RT.EKG_ITS ---
APPROVED REPORT Exam: Resting ECG Reason for Exam: ARMSTRONG Patient Location: O HR:80 bpm ECG Measurements Heart Rate 80 AXIS VT 137 P 58 QRSd 93 QRS 33 QT 387 T 57 QTc 447 Conclusion Sinus rhythm...normal P axis, V-rate 50- 99 Atrial premature complex...SV complex w/ short R-R interval Probable left atrial enlargement...P >50mS, <-0.10mV V1 Left ventricular hypertrophy with repolarization abnormalities
== END 2024-01-13 11:01 | disposition home or self-care (01) ==
LOC: DI.CARD 11:27
PROVIDERS: PCP Family Medicine; Referring Provider Family Medicine; Visit Provider Internal Medicine Cardiovascular Disease
DX: R06.09 Other forms of dyspnea (principal); I49.1 Atrial premature depolarization; I51.7 Cardiomegaly; I42.2 Other hypertrophic cardiomyopathy
CPT/HCPCS: 93010

== ENCOUNTER → 2024-01-13 11:00 | Outpatient (BNVA) | payer MEDICARE, SELFPAY | PROVIDERS: PCP Family Medicine; Referring Provider Family Medicine; Visit Provider Internal Medicine Cardiovascular Disease | DX: I51.7 Cardiomegaly (principal); R94.31 Abnormal electrocardiogram [ECG] [EKG]; I10 Essential (primary) hypertension; I25.10 Atherosclerotic heart disease of native coronary artery without angina pectoris; R06.09 Other forms of dyspnea | CPT/HCPCS: 93005; 99214 ==

== ENCOUNTER 2024-01-15 04:22 | Outpatient (CLI) | payer MEDICARE, SELFPAY ==
[2024-01-15 17:15] LABS: HCT 39.8 % (36.0-46.0); HGB 12.6 g/dL (11.2-15.7); MCHC 31.7 % (32.0-36.0); MCV 92 fL (80-95); MPV 10.2 fL (8.0-11.0); Platelet Count 243 10^3/uL (130-400); RBC 4.35 10^6/uL (3.93-5.22); RDW 13.2 % (11.7-14.6); RDW-SD 44.7 fL; WBC 6.62 10^3/uL (4.4-10.8)
[2024-01-15 17:26] LABS: INR 1.1 (0.9-1.1); PTT Activated 26.8 sec (23.6-32.8); Prothrombin Time 10.6 sec (9.1-11.1)
[2024-01-15 17:39] LABS: Anion Gap 8.8 mmol/L (3-11); BUN 23 mg/dL (7-18); CO2 26.2 mmol/L (21.0-32.0); CREATININE 1.2 mg/dL (0.55-1.02); Calcium 8.9 mg/dL (8.5-10.1); Chloride 111 mmol/L (98-107); Glucose 95 mg/dL (74-106); Potassium 4.1 mmol/L (3.5-5.1); Sodium 146 mmol/L (136-145)
== END 2024-01-15 04:23 | disposition home or self-care (01) ==
LOC: LBO 04:22
PROVIDERS: PCP Family Medicine; Visit Provider Internal Medicine Cardiovascular Disease
DX: I25.10 Atherosclerotic heart disease of native coronary artery without angina pectoris (principal)
CPT/HCPCS: 36415; 80048; 85027; 85610; 85730

== ENCOUNTER 2024-05-21 15:11 | Outpatient (REF) | payer MEDICARE, SELFPAY ==
[2024-05-21 15:42] LABS: Bilirubin Negative (Negative); Blood Trace-lysed (Negative); Clarity Clear (Clear); Glucose Negative (Negative); Ketones Negative (Negative); Leukocyte Esterase Negative (Negative); Nitrite Negative (Negative); Urobilinogen 0.2 mg/dL (Up to 0.2); pH 5.5 (5-8)
[2024-05-21 15:55] LABS: Bacteria Few HPF (Negative); C & S Indicated? No; Epithelial Cells Few HPF (Negative); Mucus Trace (Negative); RBC 0-2 HPF (0-2); WBC 0-2 HPF (0-5)
== END 2024-05-21 15:12 | disposition home or self-care (01) ==
LOC: NCHCN 15:11
PROVIDERS: PCP Family Medicine; Visit Provider Family Medicine
DX: N39.0 Urinary tract infection, site not specified (principal); B96.29 Other Escherichia coli [E. coli] as the cause of diseases classified elsewhere
CPT/HCPCS: 81003; 81015

== ENCOUNTER 2024-11-26 11:41 | Outpatient (REF) | payer MEDICARE, SELFPAY ==
[2024-11-26 15:55] LABS: BUN 17 mg/dL (7-18); Chloride 103 mmol/L (98-107); Estimated GFR 60.23 (mL/min/1.73m2); Glucose 98 mg/dL (74-106); Potassium 4.3 mmol/L (3.5-5.1); Sodium 140 mmol/L (136-145)
[2024-11-26 16:07] LABS: COMMENT (LAB VIEW ONLY) 75.81 mg/dL; Microalb ug/mg Crea 81.1 ug/mg Cr
== END 2024-11-26 11:42 | disposition home or self-care (01) ==
LOC: NCHCN 11:41
PROVIDERS: PCP Family Medicine; Visit Provider Family Medicine
DX: I10 Essential (primary) hypertension (principal)
CPT/HCPCS: 80048; 82043; 82570

== ENCOUNTER 2024-12-16 02:02 | Outpatient (CLI) | payer MEDICARE, SELFPAY ==
--- NOTE | 2024-12-16 07:57 | DI.RAD_ITS ---
Exam(s) XR HIP RT COMPLETE AP PELVIS EXAM: XR HIP RT COMPLETE AP PELVIS CLINICAL HISTORY: RIGHT HIP PAIN,M25.551. TECHNIQUE: 2D digital imaging was performed. COMPARISON: No exams were available for comparison FINDINGS: Two views No evidence of pelvic nor hip fracture. There are advanced osteoarthritic degenerative changes in the right hip with moderate joint space narrowing and subarticular degenerative cysts on both sides the joint and osteophytes. Significantly milder degenerative changes are noted in the opposite-left hip. Advanced facet arthropathy noted in the partially visualized lower lumbar spine. 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 DATA REPOSITORY: RADIATION DOSE DELIVERED:
== END 2024-12-16 02:22 ==
PROVIDERS: PCP Family Medicine; Visit Provider Family Medicine
DX: M16.11 Unilateral primary osteoarthritis, right hip (principal)
CPT/HCPCS: 73502

== ENCOUNTER 2024-12-30 21:41 | Outpatient (REF) | payer MEDICARE, SELFPAY ==
[2024-12-30 16:10] LABS: Anion Gap 7.4 mmol/L (3-11); BUN 25 mg/dL (7-18); CO2 30.6 mmol/L (21.0-32.0); Calcium 9.5 mg/dL (8.5-10.1); Chloride 102 mmol/L (98-107); Estimated GFR 53.72 (mL/min/1.73m2); Glucose 137 mg/dL (74-106); Potassium 3.9 mmol/L (3.5-5.1); Sodium 140 mmol/L (136-145)
== END 2024-12-30 21:42 | disposition home or self-care (01) ==
LOC: NCHCN 21:41
PROVIDERS: PCP Family Medicine; Visit Provider Family Medicine
DX: I10 Essential (primary) hypertension (principal)
CPT/HCPCS: 80048